=== PATIENT | female | born 1955 | race Caucasian/White ===

== ENCOUNTER → 2023-03-03 12:39 | Outpatient (CLI) | payer MEDICARE, BC, SELFPAY ==
--- NOTE | 2023-03-03 12:47 | DI.RAD.S_ITS ---
PROCEDURE: XR THORACIC SPINE 2V INDICATIONS: CHRONIC LOW BACK PAIN TECHNIQUE: 3 views of the thoracic spine were acquired. COMPARISON: None. FINDINGS: Bones: No fractures or dislocations. No suspicious bony lesions. 12 pairs of ribs are noted, and appear intact where visualized. Lower cervical spine instrumented discectomy and fusion noted. Midthoracic spine disc space narrowing present. Soft tissues: No paravertebral stripe thickening. Several epigastric surgical clips and suture line noted IMPRESSION: Midthoracic spine degenerative disc disease Prior gastric surgery Approved by: Paul Vegas M.D. on 03/03/2023 at 15:03
--- NOTE | 2023-03-03 12:47 | DI.RAD.S_ITS ---
PROCEDURE: XR LUMBAR SPINE 2-3V INDICATIONS: CHRONIC LOW BACK PAIN TECHNIQUE: 3 views of the lumbar spine were acquired. COMPARISON: None. FINDINGS: Bones: 5 [id number] vertebrae are present. There is normal bony alignment. No vertebral body compression fractures. No suspicious bony lesions. Disc spaces are preserved. Hypertrophic facet joints noted in the lower lumbar spine. Soft tissues: Overlying bowel gas pattern is normal. Atherosclerotic calcification in the abdominal aorta noted without evidence of aneurysm. Moderate fecal debris throughout the colon IMPRESSION: Facet arthropathy particularly in the lower lumbar spine Aortic atherosclerosis and moderate fecal debris throughout the colon Approved by: Paul Vegas M.D. on 03/03/2023 at 14:59
== END ==
PROVIDERS: PCP Student in an Organized Health Care Education/Training Program; Referring Provider Student in an Organized Health Care Education/Training Program; Visit Provider Student in an Organized Health Care Education/Training Program
DX: M47.816 Spondylosis without myelopathy or radiculopathy, lumbar region (principal); M51.34 Other intervertebral disc degeneration, thoracic region; M54.50 Low back pain, unspecified; I70.0 Atherosclerosis of aorta; Z98.1 Arthrodesis status
CPT/HCPCS: 72070; 72100

== ENCOUNTER 2023-04-12 14:36 | Emergency (ER) | payer MEDICARE, BC, SELFPAY ==
[2023-04-12 14:46] VITALS: BP 131/64; PULSE 63; RESP 18; TEMP 36.8; O2SAT 98; BMI 31.8
--- NOTE | 2023-04-12 14:51 | DI.RAD.S_ITS ---
PROCEDURE: XR CHEST 1V INDICATIONS: Shortness of breath TECHNIQUE: One view of the chest was acquired. COMPARISON: None. FINDINGS: Surgical changes and devices: None. Lungs and pleura: Lungs are clear. No pleural effusions or pneumothorax. Mediastinum: Mediastinal contours appear normal. Heart size is normal. Bones and chest wall: No suspicious bony lesions. Overlying soft tissues appear unremarkable. IMPRESSION: No acute cardiopulmonary disease. Dictated by: Trever Dunn M.D. on 04/12/2023 at 15:36 Approved by: Trever Dunn M.D. on 04/12/2023 at 15:36
[2023-04-12 15:29] LABS: INR 1.2 (0.9-1.3); Prothrombin Time 13.7 SECONDS (10.1-12.7)
[2023-04-12 15:31] LABS: Add Manual Diff / Slide Review NO; Basophils Absolute Auto 0 /uL (0-100); Basophils Percent Auto 0.4 % (0-2); Eosinophils Absolute Auto 0 /uL (0-450); Eosinophils Percent Auto 0.4 % (2-4); Hematocrit 38.6 % (36-46); Hemoglobin 12.8 g/dL (12.0-16.0); Lymphocytes Absolute Auto 1500 /uL (1100-4500); Lymphocytes Percent Auto 13.2 % (25-40); Mean Corpuscular HGB Conc 33.2 % (30-36); Mean Corpuscular Hemoglobin 30.9 PG (26-34); Mean Corpuscular Volume 93.2 fL (80-100); Monocytes Absolute Auto 400 /uL (0-900); Monocytes Percent Auto 3.1 % (3-14); Neutrophils Absolute Auto 9700 /uL (1500-7000); Neutrophils Percent Auto 82.9 % (50-75); Platelet Count 234 X10^3/uL (150-400); Red Blood Cell Count 4.15 X10^6/uL (4.0-5.2); Red Cell Distribution Width 14.1 % (11.6-14.8); White Blood Cell Count 11.7 X10^3/uL (4.5-11.0)
[2023-04-12 15:35] LABS: Alanine Aminotransferase 15 IU/L (<35); Albumin 4.4 g/dL (3.5-5.0); Albumin Globulin Ratio 1.3 (1.0-2.8); Alkaline Phosphatase 108 U/L (38-126); Aspartate Aminotransferase 19 IU/L (14-36); BUN Creatinine Ratio 18.6 (6-22); Bilirubin Total 0.4 mg/dL (0.2-1.3); Blood Urea Nitrogen 21 mg/dL (7-17); Calcium 9.1 mg/dL (8.4-10.2); Carbon Dioxide 26 mmol/L (22-32); Chloride 101 mmol/L (98-107); Estimated Glomerular Filt Rate 52 mL/min (>60); Globulin 3.4 g/dL (1.7-4.1); Glucose 218 mg/dL (80-110); HEMOLYSIS < 15 (0-50); Potassium 4.3 mmol/L (3.4-5.1); Sodium 136 mmol/L (137-145); Total Protein 7.8 g/dL (6.3-8.2)
[2023-04-12 15:36] LABS: Lactate (Lactic Acid) 1.1 mmol/L (0.7-2.1)
[2023-04-12 15:47] LABS: NT-proBNP (BNP-Adult 18+) 709 pg/mL (<125); Troponin I < 0.012 ng/mL (0.01-0.034)
--- NOTE | 2023-04-12 18:35 | ED_ITS ---
HPI - SOB/Dyspnea General Chief Complaint: Shortness of Breath/Dyspnea Stated Complaint: sent by wic/SOB/dizzy Time Seen by Provider: 04/12/23 18:34 Source: patient Mode of arrival: Wheelchair Limitations: no limitations History of Present Illness HPI Narrative: Patient is a 68-year-old female history of diabetes hypothyroid rheumatoid arthritis recently started on hydroxychloroquine presenting today with increas ing shortness of breath and severe fatigue. She reports since she started the hydroxychloroquine he is had extreme fatigue but now has noticed shortness of breath exertion. She denies any fever but does have chills. No productive no worsening orthopnea peripheral edema. But does note she is trying to catch her breath with very minimal activity. She denies any other symptoms at this time. Related Data Allergies Allergy/AdvReac Type Severity Reaction Status Date / Time tramadol [From Ultram] Allergy Palpitation Verified 04/12/23 14:53 s latex AdvReac Rash Verified 04/12/23 14:53 methotrexate AdvReac Vomiting Verified 04/12/23 14:53 Review of Systems Review of Systems ROS Unobtainable: All systems reviewed & are unremarkable except as noted in HPI and below Patient History Social History Smoking Status: Never smoker Smoking Status: Never smoker alcohol intake frequency: holidays/special occasions only Substance Use Type: marijuana Exam Initial Vital Signs Initial Vital Signs: Vital Signs Temperature 98.3 F 04/12/23 14:46 Pulse Rate 63 04/12/23 14:46 Respiratory Rate 18 04/12/23 14:46 Blood Pressure 131/64 04/12/23 14:46 Pulse Oximetry 98 04/12/23 14:46 Oxygen Delivery Method Room Air 04/12/23 14:46 GENERAL: Alert pleasant 68-year-old female HEENT: Head atraumatic,EOMI, pupils reactive, face symmetric, moist mucous membranes CARDIOVASCULAR: Regular rate and rhythm without murmurs, rubs or gallops. RESPIRATORY: Breath sounds equal bilaterally, no wheezes rales or rhonchi. No conversational dyspnea ABDOMEN: Soft, nontender. Normoactive bowel sounds all 4 quadrants. No guarding or rebound. EXTREMITIES: Normal range of motion, no clubbing or edema. Neurovascularly intact NEUROLOGICAL: Alert and oriented x4.Normal gait and speech. SKIN: Warm, dry, no laceration, no petechiae, no rashes or lesions. Course Orders Ordered: ED Orders 04/12/23 14:51 XR chest 1V Stat EKG-12 Lead Stat Measure peak expiratory flow ONCE RT Consult Eval and Treat NOW 04/12/23 15:13 Complete Blood Count AUTO DIFF Stat Comprehensive Metabolic Panel Stat D Dimer Stat Lactate (Lactic Acid) Stat NT-proBNP (BNP-Adult 18+) Stat Prothrombin Time INR Stat Troponin I Stat 04/12/23 19:06 CT angio chest PE protocol Stat Vital Signs Vital signs: Vital Signs - 8 hr 04/12/23 14:46 Temperature 98.3 F Pulse Rate 63 Respiratory Rate 18 Blood Pressure 131/64 Pulse Oximetry 98 Oxygen Delivery Method Room Air MDM - SOB/Dyspnea Lab Data 04/12/23 15:13 04/12/23 15:13 Labs: Lab Results 04/12/23 04/12/23 04/12/23 Range/Units 15:13 15:13 15:13 WBC 11.7 H (4.5-11.0) X10^3/uL RBC 4.15 (4.0-5.2) X10^6/uL Hgb 12.8 (12.0-16.0) g/dL Hct 38.6 (36-46) % MCV 93.2 (80-100) fL MCH 30.9 (26-34) PG MCHC 33.2 (30-36) % RDW 14.1 (11.6-14.8) % Plt Count 234 (150-400) X10^3/uL Neut % (Auto) 82.9 H (50-75) % Lymph % (Auto) 13.2 L (25-40) % [place] % (Auto) 3.1 (3-14) % Eos % (Auto) 0.4 L (2-4) % Baso % (Auto) 0.4 (0-2) % Neut # (Auto) 9700 H (2534-9606) /uL Lymph # (Auto) 1500 (7251-4620) /uL [place] # (Auto) 400 (0-900) /uL Eos # (Auto) 0 (0-450) /uL Baso # (Auto) 0 (0-100) /uL PT 13.7 H (10.1-12.7) SECONDS INR 1.2 (0.9-1.3) D-Dimer (<500) ng/ml Sodium 136 L (137-145) mmol/L Potassium 4.3 (3.4-5.1) mmol/L Chloride 101 (98-107) mmol/L Carbon Dioxide 26 (22-32) mmol/L BUN 21 H (7-17) mg/dL Creatinine 1.13 H (0.52-1.04) mg/dL Estimated GFR 52 L (>60) mL/min BUN/Creatinine Ratio 18.6 (6-22) Glucose 218 H (80-110) mg/dL Lactate (0.7-2.1) mmol/L Calcium 9.1 (8.4-10.2) mg/dL Total Bilirubin 0.4 (0.2-1.3) mg/dL AST 19 (14-36) IU/L ALT 15 (<35) IU/L Alkaline Phosphatase 108 (38-126) U/L Troponin I < 0.012 (0.01-0.034) ng/mL NT-Pro-B Natriuret Pep 709 H (<125) pg/mL Total Protein 7.8 (6.3-8.2) g/dL Albumin 4.4 (3.5-5.0) g/dL Globulin 3.4 (1.7-4.1) g/dL Albumin/Globulin Ratio 1.3 (1.0-2.8) 04/12/23 04/12/23 Range/Units 15:13 15:13 WBC (4.5-11.0) X10^3/uL RBC (4.0-5.2) X10^6/uL Hgb (12.0-16.0) g/dL Hct (36-46) % MCV (80-100) fL MCH (26-34) PG MCHC (30-36) % RDW (11.6-14.8) % Plt Count (150-400) X10^3/uL Neut % (Auto) (50-75) % Lymph % (Auto) (25-40) % [place] % (Auto) (3-14) % Eos % (Auto) (2-4) % Baso % (Auto) (0-2) % Neut # (Auto) (4011-1657) /uL Lymph # (Auto) (2920-9493) /uL [place] # (Auto) (0-900) /uL Eos # (Auto) (0-450) /uL Baso # (Auto) (0-100) /uL PT (10.1-12.7) SECONDS INR (0.9-1.3) D-Dimer 1031 H (<500) ng/ml Sodium (137-145) mmol/L Potassium (3.4-5.1) mmol/L Chloride (98-107) mmol/L Carbon Dioxide (22-32) mmol/L BUN (7-17) mg/dL Creatinine (0.52-1.04) mg/dL Estimated GFR (>60) mL/min BUN/Creatinine Ratio (6-22) Glucose (80-110) mg/dL Lactate 1.1 (0.7-2.1) mmol/L Calcium (8.4-10.2) mg/dL Total Bilirubin (0.2-1.3) mg/dL AST (14-36) IU/L ALT (<35) IU/L Alkaline Phosphatase (38-126) U/L Troponin I (0.01-0.034) ng/mL NT-Pro-B Natriuret Pep (<125) pg/mL Total Protein (6.3-8.2) g/dL Albumin (3.5-5.0) g/dL Globulin (1.7-4.1) g/dL Albumin/Globulin Ratio (1.0-2.8) Imaging Data Chest x-ray: Radiologist's Impression: PROCEDURE:? XR CHEST 1V ? INDICATIONS:? Shortness of breath ? TECHNIQUE:? One view of the chest was acquired.? ? COMPARISON:? None. ? FINDINGS:? ? Surgical changes and devices:? None.? ? Lungs and pleura:? Lungs are clear.? No pleural effusions or pneumothorax.? ? Mediastinum:? Mediastinal contours appear normal.? Heart size is normal.? ? Bones and chest wall:? No suspicious bony lesions.? Overlying soft tissues appear unremarkable.? ? IMPRESSION:? No acute cardiopulmonary disease. ? ? Dictated by: Trever Dunn M.D. on 04/12/2023 at 15:36 ? ? Approved by: Trever Dunn M.D. on 04/12/2023 at 15:36 ? CT scan - chest: Radiologist's Impression: PROCEDURE:? CT ANGIO CHEST PE PROTOCOL ? INDICATIONS:? high dimer with sob ? TECHNIQUE:? After the administration of intravenous contrast, 2 mm thick sections acquired from the pulmonary apices to the posterior costophrenic angles.? 3-dimensional maximum intensity projection (MIP) coronal and sagittal reformats were then acquired through the thorax.? For radiation dose reduction, the following was used:? automated exposure control, adjustment of mA and/or kV according to patient size.? ? COMPARISON:? [facility], CR, XR CHEST 1V, 04/12/2023, 15:13. ? FINDINGS:? Image quality:? Excellent.? ? Pulmonary arteries:? Pulmonary arteries are normal in size, and demonstrate no intraluminal filling defects to suggest central pulmonary embolism.? ? Lungs and pleura:? Lungs are clear.? No pleural effusions or pneumothorax.? Central and peripheral airways are patent.? ? Mediastinum:? Heart size is mildly enlarged, without pericardial effusion.? No mediastinal or hilar adenopathy.? Thoracic aorta is normal in caliber and enhancement.? Esophagus is normal in caliber, with prominent hiatal hernia.? ? Bones and chest wall:? No suspicious bony lesions.? Ribs and thoracic spine appear intact throughout.? Thyroid gland is unremarkable.? No axillary or supraclavicular adenopathy.? ? Abdomen:? Visualized upper abdominal solid organs appear normal in the early arterial phase of enhancement.? ? IMPRESSION:? ? No pulmonary embolism.? Lungs are clear. ? ? Dictated by: Ramonita Rivas M.D. on 04/12/2023 at 19:32 ? ? ECG Data Interpretation: Sinus rhythm rate 63 VT interval 146 QRS 88 QTC [address] changes MDM Narrative Medical decision making narrative: Patient is 68-year-old female presenting with increasing shortness of breath exertion. This all started after she started hydroxychloroquine. Adverse side reaction stool could bronchospasm. She does have a history of asthma she has albuterol home she did not take it. She really has no orthopnea or conversational dyspnea. Blood work is overall reassuring however D-dimer is quite elevated at 1031. CT angio is done which does not show any pulmonary embolism. Side effects hydroxychloroquine do show bronchospasm which might in some of her symptoms. Her photographic process attendant already told her to stop taking the medication. She is no evidence of a congestive heart failure or acute coronary syndrome. I do suspect symptoms are related to medication. No evidence of anaphylaxis. Vitals are stable. Discharge Plan Departure Patient Disposition: Home Clinical Impression: Adverse drug reaction Instructions: DI for Adverse Drug Reaction -- Other Activity Restrictions/Additional Instructions: *You have been diagnosed with drug reaction *What to do: At this time I think he are reacting to your new medication. It actually can cause bronchospasm. I do recommend following your photographic process attendant instruction add stopping the medication. However if you are still feeling short of breath it is okay to use your albuterol inhaler. *Continue to take medications as directed Albuterol 1-2 puffs if feeling short of breath *Follow up with your primary care provider in 2-3 days or call [phone] *Return to ER if you should have increasing chest pain dizziness weakness or any new, worsening or concerning symptoms Referrals: Aniyah Bishop PA-C [Primary Care Provider] - Stand Alone Forms: Patient Portal/API
[2023-04-12 18:51] LABS: D Dimer 1031 ng/ml (<500)
--- NOTE | 2023-04-12 19:06 | DI.CT.S_ITS ---
PROCEDURE: CT ANGIO CHEST PE PROTOCOL INDICATIONS: high dimer with sob TECHNIQUE: After the administration of intravenous contrast, 2 mm thick sections acquired from the pulmonary apices to the posterior costophrenic angles. 3-dimensional maximum intensity projection (MIP) coronal and sagittal reformats were then acquired through the thorax. For radiation dose reduction, the following was used: automated exposure control, adjustment of mA and/or kV according to patient size. COMPARISON: [facility], CR, XR CHEST 1V, 04/12/2023, 15:13. FINDINGS: Image quality: Excellent. Pulmonary arteries: Pulmonary arteries are normal in size, and demonstrate no intraluminal filling defects to suggest central pulmonary embolism. Lungs and pleura: Lungs are clear. No pleural effusions or pneumothorax. Central and peripheral airways are patent. Mediastinum: Heart size is mildly enlarged, without pericardial effusion. No mediastinal or hilar adenopathy. Thoracic aorta is normal in caliber and enhancement. Esophagus is normal in caliber, with prominent hiatal hernia. Bones and chest wall: No suspicious bony lesions. Ribs and thoracic spine appear intact throughout. Thyroid gland is unremarkable. No axillary or supraclavicular adenopathy. Abdomen: Visualized upper abdominal solid organs appear normal in the early arterial phase of enhancement. IMPRESSION: No pulmonary embolism. Lungs are clear. Dictated by: Ramonita Rivas M.D. on 04/12/2023 at 19:32 Approved by: Ramonita Rivas M.D. on 04/12/2023 at 19:34
[2023-04-12 19:09] VITALS: PULSE 58; O2SAT 99
[2023-04-12 19:38] VITALS: BP 126/95; PULSE 59; RESP 20; O2SAT 97
== END 2023-04-12 19:58 | disposition home or self-care (01) ==
PROVIDERS: Emergency Medicine; Emergency Provider Emergency Medicine; PCP Student in an Organized Health Care Education/Training Program
DX: J98.01 Acute bronchospasm (principal); T50.905A Adverse effect of unspecified drugs, medicaments and biological substances, initial encounter; R79.89 Other specified abnormal findings of blood chemistry
CPT/HCPCS: 36415; 71045; 71275; 80053; 83605; 83880; 84484; 85025; 85379; 85610; 93005; 99284; Q9967

== ENCOUNTER → 2023-07-19 12:25 | Outpatient (CLI) | payer MEDICARE, BC, SELFPAY ==
--- NOTE | 2023-07-19 | DI.MRI.S_ITS ---
PROCEDURE: MR LUMBAR SPINE WO CON INDICATIONS: Other intervertebral disc degeneration, lumbar region TECHNIQUE: Noncontrast sagittal T1 spin echo and T2 fast echo, sagittal STIR, and T2 fast spin echo through the lumbar spine. In cases with scoliosis, additional coronal T2 fast spin echo may be performed. COMPARISON: None. FINDINGS: Image quality: Excellent. Alignment and Curvature: There is normal bony alignment. Bone Marrow: Marrow is of normal overall signal. No acute vertebral body compression fractures. Spinal Cord: Conus medullaris terminates at the L1 level. Visualized cord demonstrates normal signal and size. Paraspinous Soft Tissues: No paravertebral masses. T12-L1: Normal appearance. L1-L2: Normal appearance. L2-L3: Mild disc bulge. Mild facet ligamentum flavum hypertrophy. No canal stenosis. No foraminal stenosis. L3-L4: Mild disc desiccation and height loss. Broad-based disc bulge. Moderate facet ligamentum flavum hypertrophy. Mild canal stenosis. Moderate left foraminal narrowing. Mild right foraminal stenosis. L4-L5: Mild disc desiccation and height loss. Broad-based disc bulge. Mild canal stenosis. Moderate facet ligamentum flavum hypertrophy. Mild bilateral foraminal stenosis. L5-S1: Mild disc bulge. Moderate facet ligamentum flavum hypertrophy. No canal stenosis. No foraminal stenosis. IMPRESSION: 1. Mild canal stenosis at L3-4 and L4-5. 2. Moderate left foraminal stenosis at L3-4. No other significant foraminal narrowing of the lumbar spine. Dictated by: Deborah Bowles M.D. on 07/19/2023 at 14:58 Approved by: Deborah Bowles M.D. on 07/19/2023 at 15:02
== END ==
PROVIDERS: PCP Student in an Organized Health Care Education/Training Program; Referring Provider Physical Medicine & Rehabilitation; Visit Provider Physical Medicine & Rehabilitation
DX: M51.36 Other intervertebral disc degeneration, lumbar region (principal); M48.061 Spinal stenosis, lumbar region without neurogenic claudication
CPT/HCPCS: 72148

== ENCOUNTER → 2023-08-15 11:00 | Outpatient (CLI) | payer MEDICARE, BC, SELFPAY ==
--- NOTE | 2023-08-15 | DI.RAD.S_ITS ---
Bone Density Report Name: SERA CEDILLO Age: 68 Sex: Female Ethnicity: White Date of : 1955 Indication: postmenopausal; screening for osteoporosis; rheumatoid arthritis; Referring Provider: GRISELDA BRAVO Study: Bone densitometry was performed. Exam Date: August 15, 2023 Accession number: [id number] Bone Density: Region BMD T-score Z-score Classification AP Spine(L1-L4) 0.881 -1.5 0.6 Osteopenia Femoral Neck (Left) 0.591 -2.3 -0.5 Osteopenia Total Hip (Left) 0.684 -2.1 -0.6 Osteopenia Femoral Neck (Right) 0.645 -1.8 0.0 Osteopenia Total Hip (Right) 0.691 -2.1 -0.5 Osteopenia Total Hip Mean 0.687 -2.1 -0.6 Osteopenia World Health Organization criteria for BMD impression classify patients as: Normal (T-score at or above -1.0), Osteopenia (T-score between -1.0 and -2.5), or Osteoporosis (T-score at or below -2.5). 10-year Fracture Risk(1): Major Osteoporotic Fracture 16% Hip Fracture 3.8% Reported Risk Factors: [place] (), Neck BMD=0.591, BMI=32.1, rheumatoid arthritis (1) FRAX(R) Version 3.08. Fracture probability calculated for an untreated patient. Fracture probability may be lower if the patient has received treatment. Impression: The patient has low bone mass, based on the Left Femoral Neck T-score. The patient has an estimated ten-year risk of hip fracture of 3.8% and an estimated ten-year risk of major fracture of 16%, based on the WHO FRAX algorithm. Discussion: BONE DENSITY IS LOW AT ONE OR MORE SKELETAL SITES. THE PATIENT'S BMD AND CLINICAL RISK FACTORS CONTRIBUTE TO THIS PATIENT'S INCREASED RISK OF FRACTURE. This patient's lowest T-score is low at one or more skeletal sites. It meets the World Health Organization's (WHO) criteria for low bone mass (T-score between -1.0 and -2.5). The patient's 10-year risk of hip fracture as calculated by FRAX exceeds the threshold where pharmacological therapy is recommended by the National Osteoporosis Foundation (NOF). However, all treatment decisions require clinical judgment and consideration of individual patient factors, including patient preferences, comorbidities, previous drug use, risk factors not captured in the FRAX model (e.g., frailty, falls, vitamin D deficiency, increased bone turnover, interval significant decline in bone density) and possible under or overestimation of fracture risk by FRAX. The patient should follow a healthful lifestyle (good nutrition with adequate calcium and vitamin D, and appropriate weight-bearing exercise). Follow-Up: Consider a repeat BMD and Vertebral Fracture Assessment (VFA) exam in 2 years or sooner if medically necessary, to reassess this patient's status. Reported by: TIMUR ALTMAN M.D. on 08/15/2023 11:30:00 AM.
== END ==
PROVIDERS: PCP Student in an Organized Health Care Education/Training Program; Referring Provider Orthopaedic Surgery Adult Reconstructive Orthopaedic Surgery; Visit Provider Orthopaedic Surgery Adult Reconstructive Orthopaedic Surgery
DX: M25.561 Pain in right knee (principal); M85.89 Other specified disorders of bone density and structure, multiple sites
CPT/HCPCS: 77080

== ENCOUNTER → 2024-02-28 13:38 | Outpatient (CLI) | payer MEDICARE, BC, SELFPAY ==
--- NOTE | 2024-02-28 14:30 | DI.MRI.S_ITS ---
PROCEDURE: MR CERVICAL SPINE WO CON INDICATIONS: Radiculopathy, cervical region TECHNIQUE: Noncontrast sagittal T1 spin echo and T2 fast spin echo, sagittal STIR, foraminal oblique sagittal T2 fast spin echo, and axial gradient echo or T2 fast spin echo through the cervical spine. COMPARISON: None. FINDINGS: Image quality: Portions of the spine are suboptimally evaluated secondary to metallic susceptibility artifact from fusion hardware. Alignment and Curvature: Anterior fusion from C3 through C6. There is trace anterolisthesis C2 on C3, C7 on T1 Bone Marrow: Marrow demonstrates normal overall signal. Spinal Cord: Visualized spinal cord has normal size and signal. No cerebellar tonsillar herniation. Paraspinous Soft Tissues: No paravertebral masses. Prevertebral soft tissues are normal in thickness. Discs: Multilevel moderate disc desiccation. C2-C3: Disc bulge without spinal stenosis. Mild left foraminal narrowing with uncovertebral hypertrophy. C3-C4: Postoperative changes are present. Mild disc bulge without stenosis. Mild left and minimal right foraminal narrowing. C4-C5: Postoperative changes are present. Mild disc bulge with mild spinal stenosis. Moderate bilateral foraminal narrowing, left greater than right with uncovertebral hypertrophy. C5-C6: Postoperative changes are present. Mild disc bulge without spinal stenosis. Moderate to severe right foraminal narrowing with uncovertebral hypertrophy. C6-C7: Postoperative changes are present. Mild disc bulge spinal stenosis. [id number] right foraminal narrowing with uncovertebral hypertrophy. C7-T1: Disc bulge with with mild spinal stenosis. IMPRESSION: C3 through C6 anterior fusion. Multilevel foraminal most severe at C5-6 secondary to uncovertebral. Minimal mild stenosis secondary to disc bulge. Dictated by: Ramonita Rivas M.D. on 02/28/2024 at 22:21 Approved by: Ramonita Rivas M.D. on 02/28/2024 at 22:25
== END ==
LOC: MRI 13:39
PROVIDERS: PCP Student in an Organized Health Care Education/Training Program; Referring Provider Physical Medicine & Rehabilitation; Visit Provider Physical Medicine & Rehabilitation
DX: M50.11 Cervical disc disorder with radiculopathy, high cervical region (principal); M48.02 Spinal stenosis, cervical region; Z98.1 Arthrodesis status
CPT/HCPCS: 72141

== ENCOUNTER 2024-04-25 21:48 | Emergency (ER) | payer MEDICARE, BC, SELFPAY ==
[2024-04-25 21:54] VITALS: BP 146/66; PULSE 71; RESP 18; TEMP 37.3; O2SAT 97; BMI 32.2
--- NOTE | 2024-04-25 22:01 | DI.RAD.S_ITS ---
PROCEDURE: XR CHEST 1V INDICATIONS: chest pain TECHNIQUE: One view of the chest was acquired. COMPARISON: [facility], CR, XR CHEST 1V, 04/12/2023, 15:13. FINDINGS: Surgical changes and devices: ACDF. Multiple clips in the upper abdomen. Lungs and pleura: Lungs are clear. No pleural effusions or pneumothorax. Mediastinum: Mediastinal contours appear normal. Heart size is normal. Bones and chest wall: No suspicious bony lesions. Overlying soft tissues appear unremarkable. IMPRESSION: No acute cardiopulmonary abnormality is seen. Dictated by: Ruperto Collins M.D. on 04/26/2024 at 0:25 Approved by: Ruperto Collins M.D. on 04/26/2024 at 0:25
--- NOTE | 2024-04-25 22:07 | DI.CT.S_ITS ---
PROCEDURE: CT HEAD/BRAIN WO CON INDICATIONS: fall/pain TECHNIQUE: Noncontrast 4.5 mm thick angled axial sections acquired from the foramen magnum to the vertex, with coronal and sagittal reformats. For radiation dose reduction, the following was used: automated exposure control, adjustment of mA and/or kV according to patient size. COMPARISON: None. FINDINGS: Image quality: Diagnostic. CSF spaces: Basal cisterns are patent. No extra-axial fluid collections. Ventricles are normal in size and shape. Brain: No midline shift. No intracranial masses or hemorrhage. Area of encephalomalacia at the right frontal lobe. Periventricular hypodensity consistent with chronic microvascular ischemic change. Age-related parenchymal loss. Skull and face: Prior right craniotomy. Calvarium and visualized facial bones are intact, without suspicious lesions. Sinuses: Visualized sinuses and mastoids are clear. IMPRESSION: No acute intracranial pathology. Area of encephalomalacia at the right frontal lobe. Prior right craniotomy. Dictated by: Ruperto Collins M.D. on 04/26/2024 at 0:25 Approved by: Ruperto Collins M.D. on 04/26/2024 at 0:28
--- NOTE | 2024-04-25 22:07 | DI.CT.S_ITS ---
PROCEDURE: CT CERVICAL SPINE WO CON INDICATIONS: fall/pain TECHNIQUE: Noncontrast 3 mm thick sections acquired from the skull base to the T4 level. Sagittal and coronal reformats were then constructed. For radiation dose reduction, the following was used: automated exposure control, adjustment of mA and/or kV according to patient size. COMPARISON: None. FINDINGS: Image quality: Excellent. Bones: C3-C4 and C5-C6 ACDF. Findings of prior screw fixation at C7. No fractures or dislocations. Visualized superior ribs are intact. Soft tissues: Prevertebral soft tissues are normal in thickness. No paravertebral hematomas. No apical pneumothoraces. IMPRESSION: No displaced fracture or traumatic subluxation. Dictated by: Ruperto Collins M.D. on 04/26/2024 at 0:28 Approved by: Ruperto Collins M.D. on 04/26/2024 at 0:32
--- NOTE | 2024-04-25 22:42 | EKG_ITS ---
[place] [id number] [place] [id number] Test Date: 2024-04-25 Pat Name: [facility] Department: [facility] Room: Gender: Female Human Resources Intern: CECILIA : 1955 Requested By: Order Number: [id number] Reading MD: Armando Viera MD Measurements Intervals [place] Rate: 64 P: -9 SC: 116 QRS: -37 QRSD: 86 T: 24 QT: 422 QTc: 435 Interpretive Statements Normal sinus rhythm Left axis deviation Anterior infarct , age undetermined Electronically Signed On 04-26-2024 7:34:49 PDT by Armando Viera MD
[2024-04-25 22:45] LABS: Add Manual Diff / Slide Review NO; Basophils Absolute Auto 0 /uL (0-100); Basophils Percent Auto 0.4 % (0-2); Eosinophils Absolute Auto 300 /uL (0-450); Eosinophils Percent Auto 2.6 % (2-4); Hematocrit 36.4 % (36-46); Hemoglobin 12.2 g/dL (12.0-16.0); Lymphocytes Absolute Auto 3100 /uL (1100-4500); Lymphocytes Percent Auto 29.7 % (25-40); Mean Corpuscular HGB Conc 33.5 % (30-36); Mean Corpuscular Hemoglobin 30.8 PG (26-34); Mean Corpuscular Volume 92.2 fL (80-100); Monocytes Absolute Auto 800 /uL (0-900); Monocytes Percent Auto 7.3 % (3-14); Neutrophils Absolute Auto 6300 /uL (1500-7000); Platelet Count 258 X10^3/uL (150-400); Red Blood Cell Count 3.96 X10^6/uL (4.0-5.2); Red Cell Distribution Width 13.5 % (11.6-14.8); White Blood Cell Count 10.6 X10^3/uL (4.5-11.0)
[2024-04-25 22:47] VITALS: PULSE 66; RESP 11; O2SAT 96
[2024-04-25 22:48] VITALS: BP 135/67; PULSE 64; RESP 25; O2SAT 96
[2024-04-25 22:51] LABS: INR 1.1 (0.9-1.3); Prothrombin Time 12.6 SECONDS (9.4-12.5)
[2024-04-25 22:53] LABS: Alanine Aminotransferase 15 IU/L (<35); Albumin 3.9 g/dL (3.5-5.0); Albumin Globulin Ratio 1.2 (1.0-2.8); Alkaline Phosphatase 121 U/L (38-126); Aspartate Aminotransferase 21 IU/L (14-36); BUN Creatinine Ratio 18.2 (6-22); Bilirubin Total 0.5 mg/dL (0.2-1.3); Blood Urea Nitrogen 24 mg/dL (7-17); Calcium 8.5 mg/dL (8.4-10.2); Carbon Dioxide 27 mmol/L (22-32); Chloride 106 mmol/L (98-107); Creatine Kinase 47 U/L (30-135); Estimated Glomerular Filt Rate 43 mL/min (>60); Globulin 3.2 g/dL (1.7-4.1); Glucose 172 mg/dL (80-110); HEMOLYSIS 16 (0-50); Lipase 126 U/L (23-300); Potassium 4.5 mmol/L (3.4-5.1); Sodium 138 mmol/L (137-145); Total Protein 7.1 g/dL (6.3-8.2)
[2024-04-25 22:54] LABS: PTT Partial Thromboplastin Tim 50 SECONDS (25.1-36.5)
--- NOTE | 2024-04-25 22:54 | PC.NURSE ---
No neurological deficit noted, pt got dizzy and fell.
[2024-04-25 23:00] VITALS: BP 140/77; PULSE 64; RESP 23; O2SAT 96
[2024-04-25 23:05] LABS: NT-proBNP (BNP-Adult 18+) 944 pg/mL (<125); Troponin I < 0.012 ng/mL (0.01-0.034)
[2024-04-25 23:30] VITALS: BP 145/65; PULSE 58; RESP 23; O2SAT 94
[2024-04-26] VITALS: BP 167/74; PULSE 57; RESP 25; O2SAT 94
--- NOTE | 2024-04-26 00:08 | ED_ITS ---
HPI - Syncope General Chief Complaint: Syncope Stated Complaint: dizzy, fall earlier Time Seen by Provider: 04/25/24 22:42 Source: patient Mode of arrival: Wheelchair Limitations: no limitations History of Present Illness HPI narrative: 69-year-old female had unwitnessed syncopal episode approximately 3:00 p.m. today, with persisting posterior headache after fall and striking her head on the floor. Patient was sitting down at her home private residence, got up quickly and started taking a few steps, by the 2nd step or so she felt quite dizzy, spinning sensation in the room, been fell backwards, striking the back of her head. She believes that she was knocked out but there was no witness, if so than unclear duration. She had pain to her posterior neck and posterior head, increasing posterior head pain. She does not take blood thinner medications. She had no numbness or tingling to her hands. No weakness to her face arm or leg before the fall or subsequent of the fall. She can not recall any antecedent chest pain or shortness of breath, no heart racing sensation, no palpitation sensation. She has not had this happened to her in the past. She has no known seizure disorder. She did have history of remote childhood traumatic brain injury, no subsequent sequelae. No history of heart rhythm issues, heart attack problems, blood clots problems. She takes trazodone and Cymbalta, last dose change about 1 month ago, has not missed any medications or taken any extra doses. No new medications. She denies drug or alcohol use. She denies any recent nausea or vomiting diarrhea, no black or red stools, taking the same oral intake, did not feel that she has been particularly dehydrated. Related Data Allergies Allergy/AdvReac Type Severity Reaction Status Date / Time tramadol [From Ultram] Allergy Palpitation Verified 04/12/23 14:53 s latex AdvReac Rash Verified 04/12/23 14:53 methotrexate AdvReac Vomiting Verified 04/12/23 14:53 Review of Systems Review of Systems Narrative: see HPI Patient History Social History Smoking Status: Never smoker Smoking Status: Never smoker alcohol intake frequency: holidays/special occasions only Substance Use Type: marijuana Exam Narrative Exam Narrative: GENERAL: Well-developed patient, in mild distress. HEAD: Atraumatic. Normocephalic. EYES: Pupils equal round and reactive. Extraocular motions intact. No scleral icterus. No injection or drainage. ENT: Nose without bleeding, purulent drainage. Throat without erythema, tonsillar hypertrophy or exudate. Airway patent. NECK: Trachea midline. Non tender CARDIOVASCULAR: Regular rate and rhythm without murmurs, gallops, or rubs. RESPIRATORY: Clear to auscultation. Breath sounds equal bilaterally. No wheezes, rales, or rhonchi. GASTROINTESTINAL: Abdomen soft, non-tender, nondistended. EXTREMITIES: No edema or joint tenderness. BACK: Nontender without deformity or crepitance. No flank tenderness. NEURO: AOx3. Nonfocal neuro exam SKIN: No rash or erythema of visible areas Initial Vital Signs Initial Vital Signs: Vital Signs Temperature 99.2 F 04/25/24 21:54 Pulse Rate 71 04/25/24 21:54 Respiratory Rate 18 04/25/24 21:54 Blood Pressure 146/66 H 04/25/24 21:54 Pulse Oximetry 97 04/25/24 21:54 Oxygen Delivery Method Room Air 04/25/24 21:54 Course Orders Ordered: ED Orders 04/25/24 22:01 XR chest 1V Stat EKG-12 Lead Stat 04/25/24 22:07 CT cervical spine wo con Stat CT head/brain wo con Stat 04/25/24 22:35 Complete Blood Count AUTO DIFF Stat Comprehensive Metabolic Panel Stat Lipase Stat Magnesium Stat NT-proBNP (BNP-Adult 18+) Stat PTT Partial Thromboplastin Caio Stat Prothrombin Time INR Stat Troponin & CK Cardiac Panel Stat 04/26/24 01:30 Troponin I Stat Discontinued Medications Ketorolac Tromethamine (Ketorolac 30 Mg/Ml Vial) 15 mg IV NOW ONE Stop: 04/26/24 01:52 Last Admin: 04/26/24 01:54 Dose: 15 mg Documented By: HNG Vital Signs Vital signs: Vital Signs - 8 hr 04/25/24 21:54 04/25/24 22:47 04/25/24 22:48 Temperature 99.2 F Pulse Rate 71 66 Respiratory Rate 18 11 L Blood Pressure 146/66 H 135/67 Pulse Oximetry 97 96 Oxygen Delivery Method Room Air 04/25/24 22:48 04/25/24 23:00 04/25/24 23:00 Temperature Pulse Rate 64 64 Respiratory Rate 25 H 23 Blood Pressure 140/77 Pulse Oximetry 96 96 Oxygen Delivery Method Room Air 04/25/24 23:30 04/25/24 23:30 04/26/24 00:00 Temperature Pulse Rate 58 L 57 L Respiratory Rate 23 25 H Blood Pressure 145/65 H Pulse Oximetry 94 94 Oxygen Delivery Method 04/26/24 00:00 04/26/24 00:30 04/26/24 00:30 Temperature Pulse Rate 59 L Respiratory Rate 19 Blood Pressure 167/74 H 151/68 H Pulse Oximetry 96 Oxygen Delivery Method Room Air 04/26/24 01:00 04/26/24 01:00 04/26/24 01:30 Temperature Pulse Rate 55 L 62 Respiratory Rate 19 21 Blood Pressure 149/67 H Pulse Oximetry 94 96 Oxygen Delivery Method 04/26/24 01:30 04/26/24 02:00 04/26/24 02:00 Temperature Pulse Rate 54 L Respiratory Rate 17 Blood Pressure 140/63 143/67 H Pulse Oximetry 96 Oxygen Delivery Method 04/26/24 02:30 04/26/24 02:30 Temperature Pulse Rate 59 L Respiratory Rate 20 Blood Pressure 140/63 Pulse Oximetry 95 Oxygen Delivery Method Room Air MDM - Syncope Lab Data Attestation: I reviewed the patient's lab results. 04/25/24 22:35 04/25/24 22:35 Labs: Lab Results 04/25/24 04/26/24 Range/Units 22:35 01:30 WBC 10.6 (4.5-11.0) X10^3/uL RBC 3.96 L (4.0-5.2) X10^6/uL Hgb 12.2 (12.0-16.0) g/dL Hct 36.4 (36-46) % MCV 92.2 (80-100) fL MCH 30.8 (26-34) PG MCHC 33.5 (30-36) % RDW 13.5 (11.6-14.8) % Plt Count 258 (150-400) X10^3/uL Neut % (Auto) 60.0 (50-75) % Lymph % (Auto) 29.7 (25-40) % [place] % (Auto) 7.3 (3-14) % Eos % (Auto) 2.6 (2-4) % Baso % (Auto) 0.4 (0-2) % Neut # (Auto) 6300 (3475-8014) /uL Lymph # (Auto) 3100 (4324-6784) /uL [place] # (Auto) 800 (0-900) /uL Eos # (Auto) 300 (0-450) /uL Baso # (Auto) 0 (0-100) /uL PT 12.6 H (9.4-12.5) SECONDS INR 1.1 (0.9-1.3) APTT 50 H (25.1-36.5) SECONDS Sodium 138 (137-145) mmol/L Potassium 4.5 (3.4-5.1) mmol/L Chloride 106 (98-107) mmol/L Carbon Dioxide 27 (22-32) mmol/L BUN 24 H (7-17) mg/dL Creatinine 1.32 H (0.52-1.04) mg/dL Estimated GFR 43 L (>60) mL/min BUN/Creatinine Ratio 18.2 (6-22) Glucose 172 H (80-110) mg/dL Calcium 8.5 (8.4-10.2) mg/dL Magnesium 2.0 (1.6-2.3) mg/dL Total Bilirubin 0.5 (0.2-1.3) mg/dL AST 21 (14-36) IU/L ALT 15 (<35) IU/L Alkaline Phosphatase 121 (38-126) U/L Total Creatine Kinase 47 (30-135) U/L Troponin I < 0.012 < 0.012 (0.01-0.034) ng/mL NT-Pro-B Natriuret Pep 944 H (<125) pg/mL Total Protein 7.1 (6.3-8.2) g/dL Albumin 3.9 (3.5-5.0) g/dL Globulin 3.2 (1.7-4.1) g/dL Albumin/Globulin Ratio 1.2 (1.0-2.8) Lipase 126 (23-300) U/L Imaging Data Chest x-ray: Radiologist's Impression: [address] [address] XRay Report Signed Patient: Vera Garcia MR#: [id number] : 1955 Acct:[id number] Age/Sex: 69 / F Date of Service: 04/25/24 Loc: ED Accession Number: [id number] Procedure: XR chest 1V Ordering Provider: Chavez Wilks MD PROCEDURE: XR CHEST 1V INDICATIONS: chest pain TECHNIQUE: One view of the chest was acquired. COMPARISON: Located Within [facility], CR, XR CHEST 1V, 04/12/2023, 15:13. FINDINGS: Surgical changes and devices: ACDF. Multiple clips in the upper abdomen. Lungs and pleura: Lungs are clear. No pleural effusions or pneumothorax. Mediastinum: Mediastinal contours appear normal. Heart size is normal. Bones and chest wall: No suspicious bony lesions. Overlying soft tissues appear unremarkable. IMPRESSION: No acute cardiopulmonary abnormality is seen. Dictated by: Ruperto Collins M.D. on 04/26/2024 at 0:25 Approved by: Ruperto Collins M.D. on 04/26/2024 at 0:25 CT scan - head: Radiologist's Impression: Close Cervical Spine CT (Signed) Call,Ruperto - 04/25/[address] (Signed) Call,Ruperto - 04/25/24 Chest X-Ray (Signed) Call,Ruperto - 04/25/24 Launch?[place] [address] CT Scan Report Signed Patient: Vera Garcia MR#: [id number] : 1955 Acct:[id number] Age/Sex: 69 / F Date of Service: 04/25/24 Loc: ED Accession Number: [id number] Procedure: CT head/brain wo con Ordering Provider: Chavez Wilks MD PROCEDURE: CT HEAD/BRAIN WO CON INDICATIONS: fall/pain TECHNIQUE: Noncontrast 4.5 mm thick angled axial sections acquired from the foramen magnum to the vertex, with coronal and sagittal reformats. For radiation dose reduction, the following was used: automated exposure control, adjustment of mA and/or kV according to patient size. COMPARISON: None. FINDINGS: Image quality: Diagnostic. CSF spaces: Basal cisterns are patent. No extra-axial fluid collections. Ventricles are normal in size and shape. Brain: No midline shift. No intracranial masses or hemorrhage. Area of encephalomalacia at the right frontal lobe. Periventricular hypodensity consistent with chronic microvascular ischemic change. Age-related parenchymal loss. Skull and face: Prior right craniotomy. Calvarium and visualized facial bones are intact, without suspicious lesions. Sinuses: Visualized sinuses and mastoids are clear. IMPRESSION: No acute intracranial pathology. Area of encephalomalacia at the right frontal lobe. Prior right craniotomy. Dictated by: Ruperto Collins M.D. on 04/26/2024 at 0:25 Approved by: Ruperto Collins M.D. on 04/26/2024 at 0:28 CT - cervical spine: Radiologist's Impression: [address] [address] [address] Scan Report Signed Patient: Vera Garcia MR#: [id number] : 1955 Acct:[id number] Age/Sex: 69 / F Date of Service: 04/25/24 Loc: ED Accession Number: [id number] Procedure: CT cervical spine wo con Ordering Provider: Chavez Wilks MD PROCEDURE: CT CERVICAL SPINE WO CON INDICATIONS: fall/pain TECHNIQUE: Noncontrast 3 mm thick sections acquired from the skull base to the T4 level. Sagittal and coronal reformats were then constructed. For radiation dose reduction, the following was used: automated exposure control, adjustment of mA and/or kV according to patient size. COMPARISON: None. FINDINGS: Image quality: Excellent. Bones: C3-C4 and C5-C6 ACDF. Findings of prior screw fixation at C7. No fractures or dislocations. Visualized superior ribs are intact. Soft tissues: Prevertebral soft tissues are normal in thickness. No paravertebral hematomas. No apical pneumothoraces. IMPRESSION: No displaced fracture or traumatic subluxation. Dictated by: Ruperto Collins M.D. on 04/26/2024 at 0:28 Approved by: Ruperto Collins M.D. on 04/26/2024 at 0:32 ECG Data Attestation: I personally reviewed and interpreted this ECG as follows: Interpretation: Normal sinus rhythm with rate 64, no obvious ST segment elevation or depression changes. Somewhat flat T-wave in lead 3 but upright in normal amplitude leads 2 and 3 contiguous inferior leads. OK 116, QRS 86, QTC 435. [facility] Narrative Medical decision making narrative: 69-year-old female with syncopal episode arising about floor starting to walk on flat surface, no obvious mechanical cause, somewhat orthostatic by nature, but no obvious risk factors for orthostasis or volume depletion by history and review of systems, no medication changes recent. Nonfocal neuro exam. Normotensive, afebrile, sirs screen negative. EKG with normal sinus rhythm, normal intervals, without ischemic changes. Screening labs unremarkable. CT head and cervical spine study pending, chest x-ray results pending. Patient placed in a C-collar after triage. CT head and cervical spine imaging showed no acute changes, see radiology reports. Chest x-ray unremarkable. Screening labs unremarkable, including 1st troponin, we will obtain interval repeat troponin. Continue telemetry, no ectopy noted. Interval repeat troponin also negative. We did discuss possible admission for further workup for syncopal episode of unclear cause, that might include further observation on telemetry, echocardiogram, carotid studies, etc. patient declines admission at this time, would like to go home, we will pursue further workup as an outpatient for now. Advised that patient in the future consider rising from sitting lying position to standing position a little more slowly, and then perhaps stay standing before starting to walk, in case her syncope was orthostatic in nature. Home with family. Return precautions discussed Critical Care Time Critical Care Time Critical Care Time: Yes Total Critical Care Time: 31 Attestation: The high probability of a clinically significant, sudden or life threatening deterioration of the [cerebrovascular, cardiopulmonary] system(s) required my full and direct attention, intervention and personal management. The aggregate critical care time was [31] minutes. This time is in addition to time spent performing reported procedures but includes the following: [x] Data Review and interpretation [x] Patient assessment and monitoring of vital signs [x] Documentation [x] Medication orders and management Discharge Plan Departure Patient Disposition: Home Clinical Impression: Syncope, Fall from ground level, Contusion of scalp Instructions: DI for Syncope in Adults (Fainting) Activity Restrictions/Additional Instructions: Passing out syncopal episode of unclear cause. You were in sitting position and then stood up and started walking when you had a passing out episode, falling backwards and striking her head. CT scan of the head/brain negative tonight, CT scan of the cervical spine also negative. EKG and serial blood tests not suggestive of heart attack. Electrolytes and other lab tests unremarkable. Unclear cause of your symptoms by review of systems and history as well as on exam. No abnormal heart rhythms or extra beats or slow/fast rhythms on property assessment monitor while observed in the emergency department. Consider further observation as an inpatient and further workup as an inpatient, declined, you would prefer to pursue outpatient follow up and testing for now. That might include things like echocardiogram ultrasound of the heart, carotid artery studies, Holter heart monitoring, other. Encouraged to consider more careful and slow rising from lying and/or sitting position, perhaps holding onto something while standing, before starting to walk, in case your symptoms were orthostatic in nature, if they were to be recurrent. Further workup as an outpatient for now, contact your regular provider early next week. Return to this/nearest emergency department for any change worsening symptoms or any concerns prior Referrals: Aniyah Bishop PA-C [Primary Care Provider] - Stand Alone Forms: Patient Portal/API
[2024-04-26 00:30] VITALS: BP 151/68; PULSE 59; RESP 19; O2SAT 96
[2024-04-26 01:00] VITALS: BP 149/67; PULSE 55; RESP 19; O2SAT 94
[2024-04-26 01:30] VITALS: BP 140/63; PULSE 62; RESP 21; O2SAT 96
[2024-04-26] MEDS: KETOROLAC 30 MG/ML VIAL 15 MG IV (01:54)
[2024-04-26 02:00] VITALS: BP 143/67; PULSE 54; RESP 17; O2SAT 96
[2024-04-26 02:00] LABS: Troponin I < 0.012 ng/mL (0.01-0.034)
[2024-04-26 02:30] VITALS: BP 140/63; PULSE 59; RESP 20; O2SAT 95
== END 2024-04-26 02:43 | disposition home or self-care (01) ==
PROVIDERS: Emergency Provider Emergency Medicine; PCP Student in an Organized Health Care Education/Training Program
DX: S00.03XA Contusion of scalp, initial encounter (principal); R07.9 Chest pain, unspecified; R55 Syncope and collapse; W18.30XA Fall on same level, unspecified, initial encounter
CPT/HCPCS: 36415; 70450; 71045; 72125; 80053; 82550; 83690; 83735; 83880; 84484; 85025; 85610; 85730; 93005; 93010; 96374; 99284; J1885

== ENCOUNTER → 2024-05-06 11:16 | Outpatient (CLI) | payer MEDICARE, BC, SELFPAY ==
--- NOTE | 2024-05-06 | DI.RAD.S_ITS ---
PROCEDURE: XR LUMBAR SPINE 2-3V INDICATIONS: BACK PAIN TECHNIQUE: 3 views of the lumbar spine were acquired. COMPARISON: [facility], , XR LUMBAR SPINE 2-3V, 03/03/2023, 12:42. FINDINGS: Bones: 5 [id number] vertebrae are present. New superior endplate height loss at L3. Mild disc height loss at all levels. Lower lumbar facet arthrosis. Soft tissues: Overlying bowel gas pattern is normal. No suspicious soft tissue calcifications. IMPRESSION: New superior endplate height loss at L3, which is probably represents an age indeterminate compression deformity. Mild, multilevel degenerative disc disease and lower lumbar facet arthrosis. Dictated by: Juanjo Judd M.D. on 05/06/2024 at 14:40 Approved by: Juanjo Judd M.D. on 05/06/2024 at 14:42
--- NOTE | 2024-05-06 | DI.RAD.S_ITS ---
PROCEDURE: XR THORACIC SPINE 2V INDICATIONS: BACK PAIN TECHNIQUE: 2 views of the thoracic spine were acquired. COMPARISON: [facility], CR, XR THORACIC SPINE 2V, 03/03/2023, 12:42. FINDINGS: Bones: No fractures or dislocations. No suspicious bony lesions. 12 pairs of ribs are noted, and appear intact where visualized. Soft tissues: No paravertebral stripe thickening. IMPRESSION: No acute bony abnormality. Dictated by: Juanjo Judd M.D. on 05/06/2024 at 14:42 Approved by: Juanjo Judd M.D. on 05/06/2024 at 14:42
== END ==
PROVIDERS: PCP Student in an Organized Health Care Education/Training Program; Referring Provider Student in an Organized Health Care Education/Training Program; Visit Provider Student in an Organized Health Care Education/Training Program
DX: M47.816 Spondylosis without myelopathy or radiculopathy, lumbar region (principal); M51.36 Other intervertebral disc degeneration, lumbar region; M43.8X6 Other specified deforming dorsopathies, lumbar region; M54.50 Low back pain, unspecified; R55 Syncope and collapse
CPT/HCPCS: 72070; 72100

== ENCOUNTER → 2024-05-15 13:21 | Outpatient (CLI) | payer MEDICARE, BC, SELFPAY ==
--- NOTE | 2024-05-15 | DI.US.S_ITS ---
PROCEDURE: US CAROTID DOPPLER BI INDICATIONS: Syncope and collapse TECHNIQUE: Color and pulse Doppler interrogation was performed of both carotid systems, with image documentation and velocity measurements. COMPARISON: None. FINDINGS: Stenosis calculations are based on SRU (Society of Radiologists in Ultrasound) criteria. The flow velocities and the arterial waveforms are normal within both carotid arterial systems. Atherosclerotic plaque is seen on both sides. The estimated degree of internal carotid artery stenosis is less than 50%. Antegrade flow is confirmed within both vertebral arteries. IMPRESSION: No hemodynamically significant stenosis is seen. Atherosclerotic plaque is noted bilaterally. Dictated by: William Mulligan M.D. on 05/15/2024 at 16:56 Approved by: William Mulligan M.D. on 05/15/2024 at 16:56
== END ==
PROVIDERS: PCP Student in an Organized Health Care Education/Training Program; Referring Provider Student in an Organized Health Care Education/Training Program; Visit Provider Student in an Organized Health Care Education/Training Program
DX: I65.23 Occlusion and stenosis of bilateral carotid arteries (principal); R55 Syncope and collapse
CPT/HCPCS: 93880

== ENCOUNTER → 2024-11-15 12:05 | Outpatient (CLI) | payer MEDICARE, BC, SELFPAY ==
--- NOTE | 2024-12-03 17:13 | DI.NM.S_ITS ---
DATE OF SERVICE: 12/03/2024 PROCEDURE: Pharmacological perfusion study. INDICATIONS: Chest pain, underlying diabetes mellitus, hyperlipidemia, hypertension. RADIOPHARMACEUTICAL: 25.4 millicurie technetium-99m Myoview IV was injected at stress and 25.8 mCi technetium-99m Myoview IV was injected at rest. CARDIAC STRESS: The patient underwent IV Lexiscan perfusion study under the supervision of an attending staff using standard intravenous Lexiscan as per protocol. The patient remained hemodynamically stable. Baseline rhythm sinus with left axis with some PACs. Poor R-wave progression. During stress, no convincing ischemic changes seen. No significant arrhythmias. No chest pain. RAW DATA: There is significant breast shadow seen. The patient also has scanning done with left arm hanging, which is creating a shadow at the lateral aspect. There is a gut shadow encroaching the inferolateral border of the heart. GATED STUDY: Resting LV ejection fraction 66% and stress LV ejection fraction 79% without any obvious wall motion abnormalities. Resting end- diastolic volume 79 mL. TID ratio 0.98, which is within normal limits. Lung/heart ratio 0.34, which is within normal limits. MYOCARDIAL PERFUSION SCAN: Please note this patient does not have any stress prone images. Stress supine and resting supine images were compared to each other. There appears to be moderate size mild to moderately decreased predominantly fixed inferolateral wall defect extending into the inferolateral apex. No significant reversible ischemia. CONCLUSION: 1. No significant reversible ischemia. 2. Patient has predominantly moderate size, fixed, inferolateral perfusion defect, which is in the setting of gut shadow encroaching the inferolateral border of the heart as well as left arm hanging down during scanning. On gated study, preserved LV function without any wall motion abnormalities. Hence, most likely we are dealing with tissue attenuation artifact. No convincing ischemic EKG changes. No chest pain. Correlate clinically. Overall, low-risk myocardial perfusion scan. This patient does not have any prone images. Vera Garcia - KYLE/veronica/OSIEL doc#: [id number]/job#: [id number] dd: 12/03/2024 16:53:00 dt: 12/03/2024 17:00:00 DICTATING MD/COPIES TO: Alka Ni MD COPIES MNE: JESUS;
== END ==
LOC: NUCM 12:06
PROVIDERS: PCP Student in an Organized Health Care Education/Training Program; Referring Provider Internal Medicine Cardiovascular Disease; Visit Provider Internal Medicine Cardiovascular Disease
DX: R07.9 Chest pain, unspecified (principal); E11.9 Type 2 diabetes mellitus without complications; E78.5 Hyperlipidemia, unspecified; I10 Essential (primary) hypertension; R42 Dizziness and giddiness
CPT/HCPCS: 78452; 93017; A9502; J2785

== ENCOUNTER → 2024-12-05 12:46 | Outpatient (CLI) | payer MEDICARE, BC, SELFPAY ==
--- NOTE | 2024-12-05 | DI.MG.S_ITS ---
MM screening mammo BI: 12/05/2024. BI-RADS: 2 CLINICAL: 69-year old female for bilateral screening mammogram. Tyrer-Cuzick lifetime risk of 7.0%. No personal or first-degree family history of breast cancer. The patient had a prior left breast biopsy. PRIOR EXAMS No prior examinations available. MAMMOGRAPHY TECHNIQUE: 2D and 3D (tomosynthesis) digital mammographic views obtained, with additional images as needed for full coverage. Current study was also evaluated with a Computer Aided Detection (CAD) system. DENSITY C. The breasts are heterogeneously dense, which may obscure small masses. MAMMOGRAPHY FINDINGS Right: Benign-appearing calcification noted on the right. There are no suspicious masses, calcifications, or other findings in the breast. Left: Benign-appearing calcification and post-surgical changes noted on the left. There are no suspicious masses, calcifications, or other findings in the breast. IMPRESSION: * No evidence of malignancy with benign findings. RECOMMENDATIONS * Previous exam(s) should be sought for comparison and, if obtained, an addendum will be issued. Bilateral * Annual screening mammography. OVERALL ASSESSMENT CATEGORY BI-RADS-2: Benign. The [employer] recommends annual screening mammography beginning at age 40 for women with average risk of breast cancer. ELECTRONICALLY SIGNED: Nora Masters M.D. on 12/05/2024 at 04:30:54 PM PT Interpreting Station ID: [id number]
== END ==
LOC: MAMMO 12:48
PROVIDERS: PCP Student in an Organized Health Care Education/Training Program; Referring Provider Student in an Organized Health Care Education/Training Program; Visit Provider Student in an Organized Health Care Education/Training Program
DX: Z12.31 Encounter for screening mammogram for malignant neoplasm of breast (principal); R92.333 Mammographic heterogeneous density, bilateral breasts
CPT/HCPCS: 77063; 77067

== ENCOUNTER → 2024-12-13 14:46 | Outpatient (CLI) | payer MEDICARE, BC, SELFPAY ==
--- NOTE | 2024-12-13 14:48 | DI.ECHO.S_ITS ---
[place] : : [address] : : [address] [address] : : [id number] : : Phone: [phone] Echocardiogram Report + + :Name: SERA CEDILLO Study Date: 12/13/2024 Height: 63 in : :[facility] ReadingLocation: Weight: 184 lb : : Gender: Female BSA: 1.9 m2 : :: 1955 Age: 69 yrs BP: 114/76 mmHg: :Reason For Study: DIZZINESS : :Ordering Physician: CHASTITY, : :CRISTINA Performed By: Gabriel Cabrera : :Referring: CRSITINA HAYWOOD : + + Interpretation Summary The ejection fraction is estimated to be 55-60%. Grade I diastolic dysfunction. The right ventricle is normal in size and function. No significant valvular abnormality. The IVC is of normal diameter and collapses greater than 50% with a sniff. This suggests a low right atrial pressure of 3 mm Hg. Procedure: A two-dimensional transthoracic echocardiogram with color flow and Doppler was performed. The study quality was technically good. There is no prior echocardiogram noted for this patient. The patient was in normal sinus rhythm during the exam. Left Ventricle: The left ventricle is normal in size. There is normal left ventricular wall thickness. There is no ventricular septal defect visualized. The ejection fraction is estimated to be 55-60%. There are no focal wall motion abnormalities. Grade I diastolic dysfunction. Right Ventricle: The right ventricle is normal in size and function. Atria: The left atrial size is normal. Right atrial size is normal. There is no Doppler evidence for an interatrial shunt. Mitral Valve: There is mild mitral annular calcification. The mitral valve leaflets appear normal. There is no evidence of stenosis, fluttering, or prolapse. There is trace mitral regurgitation. Aortic Valve: The aortic valve is trileaflet. The aortic valve opens well. No aortic regurgitation is present. Tricuspid Valve: The tricuspid valve leaflets are thin and pliable. No tricuspid regurgitation. Pulmonic Valve: The pulmonic valve leaflets are thin and pliable; valve motion is normal. There is no pulmonic valvular regurgitation. Great Vessels: The aortic root is normal size. The dimensions of the ascending aorta are normal. The pulmonary artery is normal size. The IVC is of normal diameter and collapses greater than 50% with a sniff. This suggests a low right atrial pressure of 3 mm Hg. Pericardium/ Pleura There is no pericardial effusion. There is no pleural effusion. MMode/2D Measurements & Calculations LVIDd: 5.3 cm LVOT diam: 2.1 cm LVIDs: 3.3 cm Ao root diam: 3.4 cm FS: 37.8 % asc Aorta Diam: 3.4 cm EPSS: 0.65 cm IVSd: 1.1 cm LVPWd: 1.0 cm LV villanueva. diameter/BSA (cm/m^2): 2.8 LV sys. diameter/BSA (cm/m^2): 1.8 LA A2 area: 19.1 cm2 RA long axis: 3.8 cm LA A4 area: 20.4 cm2 RA area: 8.2 cm2 LA length (vol): 5.3 cm RA vol: 14.7 ml LA vol: 61.7 ml RA : 7.9 ml/m2 LA vol index: 33.1 ml/m2 IVC diam: 1.4 cm RVD1 (basal): 3.7 cm RVD2 (mid): 3.5 cm TAPSE: 2.1 cm Doppler Measurements & Calculations Ao V2 max: 139.8 cm/sec LVOT Max Vaughn: 91.1 cm/sec Ao V2 mean: 101.1 cm/sec LV V1 max P.3 mmHg Ao max P.8 mmHg LV V1 VTI: 21.0 cm Ao mean P.5 mmHg JOSE(I,D): 2.2 cm2 Ao V2 VTI: 33.9 cm JOSE(V,D): 2.4 cm2 sev ratio: 0.62 JOSE indexed to BSA (cm^2/m^2): 1.2 MV E max vaughn: 78.9 cm/sec PA V2 max: 81.1 cm/sec MV A max vaughn: 66.7 cm/sec PA V2 mean: 56.7 cm/sec MV E/A: 1.2 PA mean P.5 mmHg Med Peak E' Vaughn: 4.6 cm/sec PA pr(Accel): 17.3 mmHg E/E' med: 17.2 Lat Peak E' Vaughn: 7.1 cm/sec E/E' lat: 11.2 E/e' average: 14.2 MV dec time: 0.20 sec SVBRYN): 76.0 ml Reading Physician:10:09 SANDEE
== END ==
PROVIDERS: PCP Student in an Organized Health Care Education/Training Program; Referring Provider Internal Medicine Cardiovascular Disease; Visit Provider Internal Medicine Cardiovascular Disease
DX: I34.81 Nonrheumatic mitral (valve) annulus calcification (principal); R42 Dizziness and giddiness
CPT/HCPCS: 93306

== ENCOUNTER 2025-01-19 15:53 | Emergency (ER) | payer MEDICARE, BC, SELFPAY ==
[2025-01-19 15:55] VITALS: BP 156/71; PULSE 62; RESP 17; TEMP 36.3; O2SAT 100; BMI 32.5
--- NOTE | 2025-01-19 15:59 | DI.RAD.S_ITS ---
PROCEDURE: XR WRIST LT MIN 3V INDICATIONS: fall, pain TECHNIQUE: For views of the wrist were acquired. COMPARISON: None. FINDINGS: Bones: Distal radial fracture with mild impaction tiny avulsion fracture fragment at the ulnar styloid. Soft tissues: No suspicious soft tissue calcifications. IMPRESSION: Impacted fracture of the distal radius. Small ulnar styloid fracture. Dictated by: Yousuf Colby M.D. on 01/19/2025 at 15:40 Approved by: Yousuf Colby M.D. on 01/19/2025 at 15:45
--- NOTE | 2025-01-19 17:17 | ED_ITS ---
<Statement entered by Armando Cornejo, DO - 01/20/25 06:06> Dr. Cornejo Co-sign Statement: I was available for consultation during this patient's emergency depart visit. This chart is signed by myself for administrative purposes only. I do not have direct contact with this patient during this visit they were seen independently by the APC. HPI - Extremity Injury (Upper) General Chief Complaint: Extremity Injury, Upper Stated Complaint: GLF No Thinners, L Wrist Injury Time Seen by Provider: 01/19/25 17:17 Source: patient Mode of arrival: Ambulatory History of Present Illness HPI narrative: 69-year-old female presents by private vehicle for left wrist pain. She was pulling on a tree branch while her daughter was using a pulse saw lost her deputy [employer] and fell somewhat forward impacting her left hand and wrist. She denies any precipitating events, she did not strike her head, she is right-handed dominant. She is reporting some wrist pain pointing to the radial aspect but also endorses some ulnar discomfort and swelling. No prior fractures that she is aware of, she is denying any numbness, tingling, loss of sensation. She states she is able to move her fingers just fine. She did ice prior to arrival and this does seem to help. No medications taken today for this injury. All other systems are reviewed and are negative. Related Data Allergies Allergy/AdvReac Type Severity Reaction Status Date / Time Sulfa (Sulfonamide Allergy Childhood Verified 01/19/25 15:55 Antibiotics) tramadol [From Ultram] Allergy Palpitation Verified 01/19/25 15:55 s latex AdvReac Rash Verified 01/19/25 15:55 methotrexate AdvReac Vomiting Verified 01/19/25 15:55 Review of Systems Review of Systems Narrative: All other systems reviewed and are negative. Patient History Social History Smoking Status: Never smoker Smoking Status: Never smoker alcohol intake frequency: holidays/special occasions only Exam Initial Vital Signs Initial Vital Signs: Vital Signs Temperature 97.4 F L 01/19/25 15:55 Pulse Rate 62 01/19/25 15:55 Respiratory Rate 17 01/19/25 15:55 Blood Pressure 156/71 H 01/19/25 15:55 Pulse Oximetry 100 01/19/25 15:55 Oxygen Delivery Method Room Air 01/19/25 15:55 Vital signs reviewed and are normal. Slight elevation in her systolic blood pressure. Const General: cooperative, healthy appearing, comfortable, well developed, well groomed and No acute distress [facility] Head: normal to inspection, normocephalic and atraumatic Eyes General: Yes appearance normal, both eyes and all related structures Neck Neck: normal visual inspection, full ROM, trachea midline and supple Chest Chest: normal inspection of the chest Resp Auscultation: clear to auscultation bilaterally Cardio Rate: regular rate Rhythm: regular rhythm Skin General: no rashes or lesions noted Neuro General: patient alert, patient awake and patient oriented x3 Other: No focal neurologic deficits, pinch mechanism is intact, ulnar radial median nerves are intact. Sensory is intact distally to her phalanges on the left side. Extrem Left upper extremity: normal capillary refill and wrist (Mild swelling radial and ulnar aspect skin intact) Details: tenderness, swelling, abnormal ROM (Pain with wrist flexion, no snuffbox tenderness.) Details: held in an abnormal fashion (Neutral position), radial pulse present and ulnar pulse present; no abrasions, no lacerations, no ecchymosis and no crepitus; no cyanosis Procedures Orthopedic Splinting/Casting Injury #1: Upper Extremity Injury Location: wrist (Left side) Post splinting neuro exam: intact Post splinting vascular exam: intact Placed by: Nursing Additional Comments: Sugar-tong with extra Webril padding, sling neutral position. Well-tolerated she feels comfortable. Course Orders Ordered: ED Orders 01/19/25 15:59 XR wrist LT min 3V Stat Vital Signs Vital signs: Vital Signs - 8 hr 01/19/25 15:55 Temperature 97.4 F L Pulse Rate 62 Respiratory Rate 17 Blood Pressure 156/71 H Pulse Oximetry 100 Oxygen Delivery Method Room Air MDM - Extremity Injury (Upper) Imaging Data Extremity x-ray #1: My Impression: Distal radius fracture with impaction, deferred to radiologist's interpretation below. Radiologist's Impression: PROCEDURE: XR WRIST LT MIN 3V INDICATIONS: fall, pain TECHNIQUE: For views of the wrist were acquired. COMPARISON: None. FINDINGS: Bones: Distal radial fracture with mild impaction tiny avulsion fracture fragment at the ulnar styloid. Soft tissues: No suspicious soft tissue calcifications. IMPRESSION: Impacted fracture of the distal radius. Small ulnar styloid fracture. Dictated by: Yousuf Colby M.D. on 01/19/2025 at 15:40 Approved by: Yousuf Colby M.D. on 01/19/2025 at 15:45 [facility] Narrative Medical decision making narrative: Pleasant 69-year-old female who had an injury at home while pulling on a branch of a tree fell to the side extending her wrist in the process. She has a closed fracture involving the distal radius which shows slight impaction as well as the ulnar styloid. She is right-handed dominant, she has having no focal neurologic deficits, pain is well controlled with ice. No issues identified with the ul naima, median or radial nerves, good movement of her distal phalanges. She has seen Dr. Torres in the past for an unrelated injury and I have asked her to contact his office tomorrow for continuity of care. She is any issues with the splint, she was placed in a Orthoglass sugar-tong as well as a sling to not hesitate to return to the emergency department. We discussed elevation, ice, [id number] pain reliever of choice, avoidance of re-injury. Red flag warning signs reviewed in detail. Discussed keeping the splint clean and dry as well. Discharge Plan Departure Patient Disposition: Home Clinical Impression: Distal radius fracture, left Qualifiers: Encounter type: initial encounter Fracture type: closed Fracture morphology: other fracture Qualified Code(s): S52.592A - Other fractures of lower end of left radius, initial encounter for closed fracture Closed fracture of ulna, styloid process Qualifiers: Encounter type: initial encounter Fracture alignment: nondisplaced Laterality: left Qualified Code(s): S52.615A - Nondisplaced fracture of left ulna styloid process, initial encounter for closed fracture Instructions: DI for Distal Radius Fracture Activity Restrictions/Additional Instructions: As discussed your x-rays show a slightly impacted distal radius fracture as well as ulna styloid fracture. Please contact your orthopedist in the morning to schedule a follow up, you have seen Dr. Torres in the past so you are already an established patient. Please do wear the sling at all times including bedtime, keep the splint dry, pain reliever of choice [id number], you may ice directly over the splint and sling 10-15 minutes at a time several times a day. Please do elevate while seated or in a reclined position. Please do not hesitate to return to the emergency department if you have any issues with the splint, you develop any new symptoms or concerns. Referrals: Aniyah Bishop PA-C [Primary Care Provider] - Anthony Torres MD [Physician] - 3-5 days (Established patient, FOOSH injury 01/19/25 closed impacted distal radius fracture and ulna styloid fracture on the left side) Stand Alone Forms: Patient Portal/API/Survey
[2025-01-19 18:20] VITALS: BP 149/66; PULSE 59; RESP 18; TEMP 36.7; O2SAT 99
== END 2025-01-19 18:20 | disposition home or self-care (01) ==
PROVIDERS: Emergency Provider Physician Assistant Medical; PCP Student in an Organized Health Care Education/Training Program
DX: S52.502A Unspecified fracture of the lower end of left radius, initial encounter for closed fracture (principal); S52.612A Displaced fracture of left ulna styloid process, initial encounter for closed fracture; W18.30XA Fall on same level, unspecified, initial encounter
CPT/HCPCS: 29105; 29125; 73110; 99283

== ENCOUNTER → 2025-04-28 13:44 | Outpatient (CLI) | payer MEDICARE, BC, SELFPAY ==
--- NOTE | 2025-04-28 13:45 | DI.RAD.S_ITS ---
PROCEDURE: XR DEXA AXIAL SKELETON INDICATIONS: Osteopenia COMPARISON: [facility], , XR DEXA AXIAL SKELETON, 08/15/2023, 11:24. FINDINGS: Lumbar Spine (L3 excluded): Bone mineral density 0.856 g/cm2, T score -1.6, statistically unchanged. Left Femoral Neck: Bone mineral density is 0.550 g/cm2, T score -2.7. Previously -2.3. Left Hip: Bone mineral density 0.651 g/cm2, T score -2.4, previously -2.1. Fracture Risk Calculation (when applicable): Rheumatoid arthritis, parent fracture 10-year fracture risk of a major osteoporotic fracture 33 percent and of a hip fracture 17 percent. (T score greater or equal to -1.0 to: NORMAL) (T score from -1.1 to -2.4: OSTEOPENIA) (T score less than or equal to -2.5: OSTEOPOROSIS) IMPRESSION: Osteoporosis. Follow-up guidelines as follows: Osteoporosis: Consider a repeat DEXA and Vertebral Fracture Assessment (VFA) exam in 2 years or sooner if medically necessary, to reassess this patient's status. Osteopenia: Consider a repeat DEXA in 2-3 years to reassess this patient's status, or if there is a new clinical indication. Normal: Consider a repeat DEXA in 5 years or sooner, or if there is a new clinical indication. All treatment decisions require clinical judgment and consideration of individual patient factors, including patient preferences, comorbidities, previous drug use, risk factors not captured in the FRAX model (e.g., frailty, falls, vitamin D deficiency, increased bone turnover, interval significant decline in bone density ) and possible under- or over-estimation of fracture risk by FRAX. In addition, the NOF Guide recommends that FDA-approved medical therapies be considered in postmenopausal women and men age >= 50 years with a: * Hip or vertebral (clinical or morphometric) fracture * T-score of <=-2.5 at the spine or hip * Ten-year fracture probability by FRAX of >= 3% for hip fracture or >=20% for major osteoporotic fracture. Dictated by: Juanjo Judd M.D. on 04/28/2025 at 16:14 Approved by: Juanjo Judd M.D. on 04/28/2025 at 16:19
== END ==
PROVIDERS: PCP Student in an Organized Health Care Education/Training Program; Referring Provider Internal Medicine; Visit Provider Internal Medicine
DX: M85.89 Other specified disorders of bone density and structure, multiple sites (principal); M81.0 Age-related osteoporosis without current pathological fracture
CPT/HCPCS: 77080

== ENCOUNTER → 2025-09-08 19:06 | Outpatient (CLI) | payer MEDICARE, BC, SELFPAY ==
--- NOTE | 2025-09-08 | DI.MRI.S_ITS ---
PROCEDURE: MR THORACIC SPINE WO CON INDICATIONS: Chronic bilateral low back pain TECHNIQUE: Noncontrast sagittal T1 spine echo and T2 fast spin echo, sagittal STIR, and T2 fast spin echo through the thoracic spine. COMPARISON: None. FINDINGS: Image quality: Excellent. Alignment and Curvature: There is normal bony alignment. Bone Marrow: Marrow is of normal overall signal. No acute vertebral body compression fractures. Spinal Cord: Visualized spinal cord is normal in size and signal. Paraspinous Soft Tissues: No paravertebral masses. Miscellaneous: Mild degenerative endplate changes are noted in lower thoracic spine. No significant disc bulge, canal stenosis or neural foraminal narrowing is seen. IMPRESSION: 1. 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 No marrow edema. No compression fracture or spondylolisthesis. No significant central canal stenosis or neural foraminal narrowing. 2. No gross paraspinous soft tissue abnormalities. No abnormal thoracic spinal cord signal. Dictated by: Ezra Mills M.D. on 09/09/2025 at 15:04 Approved by: Ezra Mills M.D. on 09/09/2025 at 15:05
--- NOTE | 2025-09-08 | DI.MRI.S_ITS ---
PROCEDURE: MR LUMBAR SPINE WO CON INDICATIONS: Chronic bilateral low back pain TECHNIQUE: Noncontrast sagittal T1 spin echo and T2 fast echo, sagittal STIR, and T2 fast spin echo through the lumbar spine. In cases with scoliosis, additional coronal T2 fast spin echo may be performed. COMPARISON: [facility], MR, MR LUMBAR SPINE WO CON, 07/19/2023, 13:09. FINDINGS: Image quality: Excellent. Alignment and Curvature: There is normal bony alignment. Bone Marrow: Marrow is of normal overall signal. No acute vertebral body compression fractures. Chronic appearing anterior wedge compression deformity at L3 level is seen with up to 30% loss of L3 vertebral body height. Spinal Cord: Conus medullaris terminates at the L1 level. Visualized cord demonstrates normal signal and size. Paraspinous Soft Tissues: No paravertebral masses. Simple appearing left renal cysts are seen. No hydronephrosis. T12-L1: Normal appearance. L1-L2: Disc desiccation. No significant disc bulge, canal stenosis or neural foraminal narrowing. L2-L3: Disc desiccation and loss of disc height. Diffuse disc bulge and bilateral facet arthrosis with mild central canal stenosis and right worse than left bilateral neural foraminal narrowing. L3-L4: Disc desiccation and loss of disc height. Broad-based disc bulge and bilateral facet arthrosis with hypertrophy of ligamentum flavum causing moderate central canal stenosis, severe right-sided neural foraminal narrowing and moderate to severe left-sided neural foraminal narrowing. Bulging disc likely contacting bilateral L3 nerve roots. L4-L5: Loss of disc height and disc desiccation. Broad-based disc bulge and bilateral facet arthrosis with hypertrophy of ligamentum flavum. Moderate central canal stenosis and moderate to severe right-sided neural foraminal narrowing is seen. Moderate left-sided neural foraminal narrowing is also seen. Bulging disc likely contacting bilateral L4 nerve roots. L5-S1: Broad-based disc bulge and bilateral facet arthrosis. No significant central canal stenosis. [id number] bilateral neural foraminal narrowing. IMPRESSION: 1. Chronic appearing anterior wedge compression deformity at L3 level with up to 30% loss of L3 vertebral body height. No acute vertebral body compression fracture. 2. [id number] degenerative disc disease throughout lumbar spine causing various degrees of central canal stenosis and bilateral neural foraminal narrowing more notably at L3-4 and L4-5 levels as described above. 3. No gross paraspinous soft tissue abnormalities. Dictated by: Ezra Mills M.D. on 09/09/2025 at 15:05 Approved by: Ezra Mills M.D. on 09/09/2025 at 15:09
== END ==
LOC: MRI 19:08
PROVIDERS: PCP Student in an Organized Health Care Education/Training Program; Referring Provider Student in an Organized Health Care Education/Training Program; Visit Provider Student in an Organized Health Care Education/Training Program
DX: M51.34 Other intervertebral disc degeneration, thoracic region (principal); M51.16 Intervertebral disc disorders with radiculopathy, lumbar region; M48.061 Spinal stenosis, lumbar region without neurogenic claudication; M43.8X6 Other specified deforming dorsopathies, lumbar region; G89.29 Other chronic pain
CPT/HCPCS: 72146; 72148